=== PATIENT | male | born 1940 | race Caucasian/White ===

== ENCOUNTER → 2016-07-08 | Outpatient (CLI) | payer MEDICARE ==
[~2016-07-08] MED LIST: ASPIR LOW81 MG PO; ATORVASTATIN CA20 M1 PO; BENTYL10 MG PO; CO Q-1010 M2 PO; LISINOPRIL AND1 TA2 PO; LISINOPRIL AND1 TAB PO; LISINOPRIL/HCTZ1 TA3 PO; LIVALO1 MG PO; NIACIN 37 MG-501 TAB PO; PEPCID20 MG PO
--- NOTE | ~2016-07-08 | PROC NOTE ---
[place], [place] PROCEDURE NOTE NAME: JESUS WADSWORTH [facility] #: [id number] UNIT #: [id number] ROOM: DOCTOR: Cuca Miller BIRTHDATE: [birth year] DOS: 07/08/2016 MODIFIED BARIUM SWALLOW STUDY RADIOLOGIST: Dr. Jarquin. PHYSICIAN: Dr. Mitchell. BACKGROUND MEDICAL HISTORY: The patient is a 76-year-old male who was referred for a modified barium swallow study [facility] in order to assess his ability to tolerate thin liquids. The patient had a CVA and is currently receiving a diet of mechanical soft with nectar thick liquids and is receiving speech therapy at the [facility] as well. The patient's cognitive responsiveness level was within functional limits as he was able to have a conversation, respond to verbal commands and give medical history information on his own. Respiratory status was normal. The patient is currently not on oxygen. The patient stated that he had a previous video fluoroscopy study at [facility] after his CVA. METHODS AND MATERIALS: The patient was given thin liquid by cup and by straw, pureed consistency and a soft consistency, all covered with Liquid Barosperse for viewing under fluoroscopy. The patient was seated in a wheelchair and viewed in the lateral plane. Oral assessment revealed left hemiparesis as the patient protruded his tongue and it veered to the right side. The patient demonstrated adequate lingual and labial strength, range of motion, and coordination with movement and noted weakness to the left side when asked to smile. ORAL PHASE: This phase of the swallow was essentially unremarkable. The patient was able to achieve an adequate labial seal, and no anterior loss was noted. Mastication was within functional limits with solids, and oral transit times were within functional limits. Bolus formation was adequate, and tongue to palate contact was adequate as well. Tongue to posterior pharyngeal wall contact was adequate, and ____ function was adequate as no nasal regurgitation occurred. PHARYNGEAL PHASE: The patient demonstrated premature loss of bolus with the spoonful of pears, which were solid and Liquid Barosperse was present on the spoon, which was a thin liquid. The patient demonstrated premature loss with the thin liquid while chewing the bolus; however, he was able to clear this with a single swallow. Minimal residue was noted after the swallow, which the patient was able to clear when given a drink of thin liquids. Minimal pyriform stasis was noted after each bite of solid; however, the patient was able to clear this with a drink of thin liquids. No penetration or aspiration occurred with thin liquids by cup or by straw, and no penetration or aspiration occurred of any residue that remained in the pharynx after the swallow. The patient was able to clear residue additionally by eliciting a second swallow. Epiglottic function was normal, and cricopharyngeal function was normal. [place], [place] PROCEDURE NOTE NAME: JESUS WADSWORTH UNIT #: [id number] ROOM: DOCTOR: Cuca Miller BIRTHDATE: [birth year] ESOPHAGEAL PHASE: This phase of the swallow was not formally assessed under fluoroscopy at this time, however, no regurgitation of material was noted. RESULTS AND RECOMMENDATIONS: The patient demonstrated mild deficits with the pharyngeal phase and no deficits with the oral phase at this time. It is recommended that the patient continue with speech therapy services to continue improving his laryngeal strength, and it is recommended that the patient receive a diet of thin liquids with soft consistency foods due to the residue noted after a swallow of solids. Results and recommendations were reviewed with the patient and his family, and written recommendations were sent home for the staff at the facility. If you have any questions or comments regarding this assessment, please contact the speech pathology department at [phone]. Thank you for this referral. Cuca Miller CM:PROCNOTE:PROCEDURE NOTE [id number] Cuca Miller
== END | disposition home or self-care (01) ==
LOC: RAD/SH 03:04
DX: R13.10 Dysphagia, unspecified (principal); I63.9 Cerebral infarction, unspecified

== ENCOUNTER 2016-10-01 07:44 | Inpatient (IN) | payer MEDICARE ==
[~2016-10-01] VITALS: Ht 175.2 cm; Wt 72.6 kg
[~2016-10-01 07:44] MED LIST changes: +CLARITIN10 MG PO; +ELIQUIS5 M1 PO; +GABAPENTIN100 M2 PO; +LOPRESSOR25 MG PO; +MILK OF MA400 MG/51 PO; +OXYCODONE AND A1 TA6 PO; +TYLENOL325 M1 PO; +VITAMIN B1250 MCG PO; +VITAMIN D400 UNIT PO
[2016-10-01 07:56] VITALS: BP 138/82
[2016-10-01 08:13] LABS: BASO % 0.6 % (0.0-1.0); EOS # 0.3 10*3/uL (0.0-0.4); EOS % 4.9 % (1.0-4.0); HEMATOCRIT 41.8 % (42.0-52.0); HEMOGLOBIN 14.1 g/dl (14.0-18.0); LYMPH # 1.5 10*3/uL (1.3-4.4); LYMPH % 23.3 % (27.0-41.0); MEAN CELL VOLUME 95.2 fl (80.0-94.0); MEAN CORPUSCULAR HGB 32.1 pg (27.0-31.0); MEAN CORPUSCULAR HGB CONC 33.7 g/dl (33.0-37.0); MEAN PLATELET VOLUME 9.8 fl (9.6-12.3); MONO # 0.5 10*3/uL (0.1-1.0); MONO % 8.2 % (3.0-9.0); NEUT # 4.1 10*3/uL (2.3-7.9); NEUT % 62.7 % (47.0-73.0); PLATELET COUNT AUTOMATED 176 10*3/uL (130-400); RED BLOOD COUNT 4.39 10*6/uL (4.50-5.90); RED CELL DISTRI WIDTH 12.6 % (0-14.5); WHITE BLOOD COUNT 6.5 10*3/uL (4.8-10.8)
[2016-10-01 08:22] LABS: INTERNATIONAL NORM RATIO 1.1 (2.0-3.5); PROTHROMBIN TIME 11.4 SECONDS (9.0-12.4)
[2016-10-01 08:29] LABS: ALBUMIN 3.8 gm/dl (3.1-4.5); ALKALINE PHOSPHATASE 62 U/L (45-117); BILIRUBIN, TOTAL 0.7 mg/dl (0.2-1.0); BUN 13 mg/dl (7-24); CARBON DIOXIDE 29 mmol/L (21-32); CHLORIDE 109 mmol/L (98-107); CPK 31 U/L (39-308); EST GLOM FILT AFRICAN AMERICAN > 60 ml/min; GLUCOSE 113 mg/dL (65-99); MAGNESIUM 1.9 mg/dL (1.5-2.1); PHOSPHOROUS 3.1 mg/dL (2.5-4.9); POTASSIUM 3.9 mmol/L (3.5-5.1); SGOT/AST 10 IU/L (3-35); SGPT/ALT 23 U/L (12-78); SODIUM 145 mmol/L (136-145); TOTAL PROTEIN 7.2 gm/dL (6.4-8.2)
[2016-10-01 08:30] LABS: C-REACTIVE PROTEIN < 0.29 MG/DL (0-0.3); CKMB < 0.5 ng/ml (0.5-3.6); TROPONIN I < 0.015 ng/ml (<0.045)
[2016-10-01 08:50] LABS: FOLIC ACID 21.7 ng/mL (>5.38)
[2016-10-01] MEDS ORDERED: LIPITOR40 MG PO (14:05)
[2016-10-01] MEDS ORDERED: ZADITOR 5 ML5 M1 OPH (14:06)
[2016-10-01] MEDS ORDERED: NEURONTIN100 MG PO ×2 (14:10→17:38)
[2016-10-01 14:59] VITALS: BP 145/87
[2016-10-01 16:00] VITALS: BP 129/68
[2016-10-01 20:00] VITALS: BP 155/73
[2016-10-02] VITALS: BP 134/62
[2016-10-02 05:59] LABS: ALBUMIN 3.1 gm/dl (3.1-4.5); ALKALINE PHOSPHATASE 58 U/L (45-117); BILIRUBIN, TOTAL 0.4 mg/dl (0.2-1.0); BUN 13 mg/dl (7-24); CARBON DIOXIDE 25 mmol/L (21-32); CHLORIDE 114 mmol/L (98-107); CHOLESTEROL 118 mg/dL (<200); EST GLOM FILT AFRICAN AMERICAN > 60 ml/min; GLUCOSE 120 mg/dL (65-99); HDL CHOLESTEROL 45 mg/dl (40-60); LDL CHOLESTEROL 45 mg/dL (9-159); MAGNESIUM 1.6 mg/dL (1.5-2.1); PHOSPHOROUS 3.2 mg/dL (2.5-4.9); POTASSIUM 3.6 mmol/L (3.5-5.1); SGOT/AST 13 IU/L (3-35); SGPT/ALT 20 U/L (12-78); SODIUM 148 mmol/L (136-145); TRIGLYCERIDES 140 mg/dl (<150); VLDL CHOLESTEROL 28 mg/dL (6-40)
[2016-10-02 06:19] LABS: BASO # 0.1 10*3/uL (0.0-0.1); BASO % 0.7 % (0.0-1.0); EOS # 0.4 10*3/uL (0.0-0.4); EOS % 5.1 % (1.0-4.0); HEMATOCRIT 35.8 % (42.0-52.0); HEMOGLOBIN 12.5 g/dl (14.0-18.0); LYMPH # 1.8 10*3/uL (1.3-4.4); LYMPH % 24.5 % (27.0-41.0); MEAN CELL VOLUME 93.7 fl (80.0-94.0); MEAN CORPUSCULAR HGB 32.7 pg (27.0-31.0); MEAN CORPUSCULAR HGB CONC 34.9 g/dl (33.0-37.0); MEAN PLATELET VOLUME 10.4 fl (9.6-12.3); MONO # 0.6 10*3/uL (0.1-1.0); MONO % 8.4 % (3.0-9.0); NEUT # 4.4 10*3/uL (2.3-7.9); PLATELET COUNT AUTOMATED 183 10*3/uL (130-400); RED BLOOD COUNT 3.82 10*6/uL (4.50-5.90); RED CELL DISTRI WIDTH 12.5 % (0-14.5); WHITE BLOOD COUNT 7.3 10*3/uL (4.8-10.8)
[2016-10-02 06:23] LABS: HEMOGLOBIN A1c 6.4 % (4.8-5.6)
[2016-10-02 07:33] LABS: VITAMIN D, 25-HYDROXY 25.7 ng/mL (30-100)
[2016-10-02 07:34] LABS: FOLIC ACID 14.31 ng/mL (>5.38)
[2016-10-02 08:00] VITALS: BP 132/74
[2016-10-02 12:00] VITALS: BP 145/73
[2016-10-02 16:00] VITALS: BP 149/75
[2016-10-02 20:00] VITALS: BP 152/66
[2016-10-03] VITALS: BP 119/54
[2016-10-03 08:00] VITALS: BP 149/75
[2016-10-03 10:25] LABS: BILIRUBIN NEGATIVE (NEGATIVE); BLOOD NEGATIVE (NEGATIVE); CLARITY CLEAR (CLEAR); COLOR YELLOW (YELLOW); GLUCOSE NEGATIVE (NEGATIVE); KETONE NEGATIVE (NEGATIVE); LEUKO ESTERASE NEGATIVE (NEGATIVE); NITRITE NEGATIVE (NEGATIVE); PROTEIN NEGATIVE (NEGATIVE); UROBILINOGEN 0.2 E.U./dl (0.2-1.0)
[2016-10-03 10:33] LABS: BACTERIA TRACE; MUCOUS TRACE; URINE REFLEX COMMENT NO (NO)
[2016-10-03 12:00] VITALS: BP 136/76
[2016-10-03 16:00] VITALS: BP 143/71
[2016-10-03 20:00] VITALS: BP 148/66
[2016-10-04] VITALS: BP 154/73
[2016-10-04 08:00] VITALS: BP 168/83
[2016-10-04 08:24] LABS: BUN 10 mg/dl (7-24); CARBON DIOXIDE 25 mmol/L (21-32); CHLORIDE 111 mmol/L (98-107); EST GLOM FILT AFRICAN AMERICAN > 60 ml/min; GLUCOSE 121 mg/dL (65-99); POTASSIUM 3.9 mmol/L (3.5-5.1); SODIUM 145 mmol/L (136-145)
== END 2016-10-04 10:50 | disposition other institution (70) | DRG 948 ==
LOC: ED 07:44 → EDHOLD 13:42 → 5E 13:42
PROVIDERS: Emergency Medicine; Hospitalist
DX: R53.1 Weakness (principal); I10 Essential (primary) hypertension; R26.81 Unsteadiness on feet; E78.2 Mixed hyperlipidemia; T42.6X5A Adverse effect of other antiepileptic and sedative-hypnotic drugs, initial encounter; E78.5 Hyperlipidemia, unspecified; Z95.5 Presence of coronary angioplasty implant and graft; Z87.891 Personal history of nicotine dependence; Z85.46 Personal history of malignant neoplasm of prostate; Z82.0 Family history of epilepsy and other diseases of the nervous system; Z86.73 Personal history of transient ischemic attack (TIA), and cerebral infarction without residual deficits; Z82.3 Family history of stroke; Z79.899 Other long term (current) drug therapy; Z79.1 Long term (current) use of non-steroidal anti-inflammatories (NSAID); Y92.89 Other specified places as the place of occurrence of the external cause; Z98.42 Cataract extraction status, left eye; Z98.41 Cataract extraction status, right eye

== ENCOUNTER → 2016-10-04 | Outpatient (CLI) | payer MEDICARE ==
[~2016-10-04] MED LIST changes: +LIPITOR40 MG PO; +NEURONTIN100 MG PO; +ZADITOR 5 ML5 M1 OPH
== END | disposition home or self-care (01) ==
LOC: CP 11:00
DX: I69.398 Other sequelae of cerebral infarction (principal); R41.4 Neurologic neglect syndrome; R20.9 Unspecified disturbances of skin sensation; R41.89 Other symptoms and signs involving cognitive functions and awareness

== ENCOUNTER 2016-10-19 08:28 | Inpatient (IN) | payer MEDICARE ==
[~2016-10-19] VITALS: Ht 185.4 cm; Wt 74.2 kg
[2016-10-19] VITALS (9 sets, daily range): BP systolic 113–175; BP diastolic 67–92
[2016-10-19 09:19] LABS: BASO # 0.1 10*3/uL (0.0-0.1); BASO % 0.7 % (0.0-1.0); EOS # 0.2 10*3/uL (0.0-0.4); EOS % 3.4 % (1.0-4.0); HEMOGLOBIN 13.3 g/dl (14.0-18.0); LYMPH # 1.5 10*3/uL (1.3-4.4); LYMPH % 22.5 % (27.0-41.0); MEAN CORPUSCULAR HGB CONC 34.1 g/dl (33.0-37.0); MEAN PLATELET VOLUME 9.8 fl (9.6-12.3); MONO # 0.4 10*3/uL (0.1-1.0); MONO % 6.3 % (3.0-9.0); NEUT # 4.5 10*3/uL (2.3-7.9); NEUT % 66.8 % (47.0-73.0); PLATELET COUNT AUTOMATED 196 10*3/uL (130-400); RED BLOOD COUNT 4.15 10*6/uL (4.50-5.90); RED CELL DISTRI WIDTH 12.4 % (0-14.5); WHITE BLOOD COUNT 6.7 10*3/uL (4.8-10.8)
[2016-10-19 09:29] LABS: INTERNATIONAL NORM RATIO 1.1 (2.0-3.5); PROTHROMBIN TIME 11.4 SECONDS (9.0-12.4)
[2016-10-19 09:36] LABS: ALBUMIN 3.6 gm/dl (3.1-4.5); ALKALINE PHOSPHATASE 62 U/L (45-117); BILIRUBIN, TOTAL 0.5 mg/dl (0.2-1.0); BUN 16 mg/dl (7-24); CARBON DIOXIDE 22 mmol/L (21-32); CHLORIDE 109 mmol/L (98-107); CPK 48 U/L (39-308); EST GLOM FILT AFRICAN AMERICAN > 60 ml/min; GLUCOSE 148 mg/dL (65-99); MAGNESIUM 1.8 mg/dL (1.5-2.1); POTASSIUM 3.5 mmol/L (3.5-5.1); SGOT/AST 11 IU/L (3-35); SGPT/ALT 24 U/L (12-78); SODIUM 141 mmol/L (136-145)
[2016-10-19 09:54] LABS: C-REACTIVE PROTEIN < 0.29 MG/DL (0-0.3); CKMB < 0.5 ng/ml (0.5-3.6); TROPONIN I < 0.015 ng/ml (<0.045)
[2016-10-19 11:11] LABS: BILIRUBIN NEGATIVE (NEGATIVE); BLOOD NEGATIVE (NEGATIVE); CLARITY SL CLOUDY (CLEAR); COLOR YELLOW (YELLOW); GLUCOSE NEGATIVE (NEGATIVE); KETONE NEGATIVE (NEGATIVE); LEUKO ESTERASE NEGATIVE (NEGATIVE); NITRITE NEGATIVE (NEGATIVE); PROTEIN NEGATIVE (NEGATIVE); SPECIFIC GRAVITY 1.025 (1.005-1.030); UROBILINOGEN 0.2 E.U./dl (0.2-1.0)
[2016-10-19 11:16] LABS: LA>2 REFLEX 2 HR DRAW NOW
[2016-10-19 11:22] LABS: MUCOUS TRACE; URINE REFLEX COMMENT NO (NO)
[2016-10-19] MEDS ORDERED: PEPCID20 MG PO (13:49)
[2016-10-19] MEDS ORDERED: VITAMIN D32000 IU PO (13:52)
[2016-10-20] VITALS: BP 100/50
[2016-10-20 06:13] LABS: BASO # 0.1 10*3/uL (0.0-0.1); BASO % 0.7 % (0.0-1.0); EOS # 0.2 10*3/uL (0.0-0.4); EOS % 3.3 % (1.0-4.0); HEMATOCRIT 35.8 % (42.0-52.0); HEMOGLOBIN 12.3 g/dl (14.0-18.0); LYMPH # 2.3 10*3/uL (1.3-4.4); LYMPH % 31.8 % (27.0-41.0); MEAN CELL VOLUME 93.2 fl (80.0-94.0); MEAN CORPUSCULAR HGB CONC 34.4 g/dl (33.0-37.0); MEAN PLATELET VOLUME 9.9 fl (9.6-12.3); MONO # 0.6 10*3/uL (0.1-1.0); NEUT # 4.1 10*3/uL (2.3-7.9); NEUT % 55.9 % (47.0-73.0); PLATELET COUNT AUTOMATED 203 10*3/uL (130-400); RED BLOOD COUNT 3.84 10*6/uL (4.50-5.90); RED CELL DISTRI WIDTH 12.6 % (0-14.5); WHITE BLOOD COUNT 7.2 10*3/uL (4.8-10.8)
[2016-10-20 06:46] LABS: ALBUMIN 3.1 gm/dl (3.1-4.5); BUN 15 mg/dl (7-24); CARBON DIOXIDE 24 mmol/L (21-32); CHLORIDE 110 mmol/L (98-107); EST GLOM FILT AFRICAN AMERICAN > 60 ml/min; GLUCOSE 106 mg/dL (65-99); MAGNESIUM 2.1 mg/dL (1.5-2.1); POTASSIUM 3.6 mmol/L (3.5-5.1); SGOT/AST 12 IU/L (3-35); SGPT/ALT 21 U/L (12-78); SODIUM 143 mmol/L (136-145)
[2016-10-20 06:56] LABS: ALKALINE PHOSPHATASE 59 U/L (45-117); BILIRUBIN, TOTAL 0.6 mg/dl (0.2-1.0); TOTAL PROTEIN 6.4 gm/dL (6.4-8.2)
[2016-10-20 07:09] LABS: FOLIC ACID 15.97 ng/mL (>5.38)
[2016-10-20 08:00] VITALS: BP 125/75
== END 2016-10-20 11:01 | DRG 100 ==
LOC: ED 08:28 → EDHOLD 11:35 → 4E 11:39
PROVIDERS: Emergency Medicine; Hospitalist
DX: R56.9 Unspecified convulsions (principal); G93.40 Encephalopathy, unspecified; I69.354 Hemiplegia and hemiparesis following cerebral infarction affecting left non-dominant side; D64.9 Anemia, unspecified; I10 Essential (primary) hypertension; E78.5 Hyperlipidemia, unspecified; Z85.46 Personal history of malignant neoplasm of prostate; Z88.8 Allergy status to other drugs, medicaments and biological substances; Z87.891 Personal history of nicotine dependence; Z82.3 Family history of stroke; R53.1 Weakness; R53.81 Other malaise; E78.4 Other hyperlipidemia

== ENCOUNTER → 2016-11-18 | Outpatient (CLI) | payer MEDICARE ==
[~2016-11-18] MED LIST changes: +VITAMIN D32000 IU PO
== END | disposition home or self-care (01) ==
LOC: US 12:17
DX: I65.23 Occlusion and stenosis of bilateral carotid arteries (principal); I25.10 Atherosclerotic heart disease of native coronary artery without angina pectoris; I63.231 Cerebral infarction due to unspecified occlusion or stenosis of right carotid arteries; I82.A22 Chronic embolism and thrombosis of left axillary vein; Z95.5 Presence of coronary angioplasty implant and graft

== ENCOUNTER → 2016-11-22 | Outpatient (CLI) | payer MEDICARE | END | disposition home or self-care (01) | LOC: LAB 11:38 | DX: D64.9 Anemia, unspecified (principal); R53.83 Other fatigue ==

== ENCOUNTER 2016-12-23 10:10 | Emergency (ER) | payer MEDICARE ==
[~2016-12-23] VITALS: Ht 175.2 cm; Wt 70.3 kg
[2016-12-23 11:02] LABS: BASO # 0.1 10*3/uL (0.0-0.1); BASO % 0.7 % (0.0-1.0); EOS # 0.2 10*3/uL (0.0-0.4); EOS % 2.6 % (1.0-4.0); HEMATOCRIT 43.3 % (42.0-52.0); HEMOGLOBIN 14.6 g/dl (14.0-18.0); LYMPH # 1.7 10*3/uL (1.3-4.4); LYMPH % 19.7 % (27.0-41.0); MEAN CORPUSCULAR HGB 32.4 pg (27.0-31.0); MEAN CORPUSCULAR HGB CONC 33.7 g/dl (33.0-37.0); MEAN PLATELET VOLUME 9.7 fl (9.6-12.3); MONO # 0.6 10*3/uL (0.1-1.0); MONO % 6.4 % (3.0-9.0); NEUT % 69.9 % (47.0-73.0); PLATELET COUNT AUTOMATED 218 10*3/uL (130-400); RED BLOOD COUNT 4.51 10*6/uL (4.50-5.90); RED CELL DISTRI WIDTH 12.7 % (0-14.5); WHITE BLOOD COUNT 8.6 10*3/uL (4.8-10.8)
[2016-12-23 11:10] LABS: ACT PARTIAL THROMBO TIME 23.1 SECONDS (20.8-31.5)
[2016-12-23 11:24] LABS: ALBUMIN 3.7 gm/dl (3.1-4.5); ALKALINE PHOSPHATASE 74 U/L (45-117); BUN 23 mg/dl (7-24); CHLORIDE 111 mmol/L (98-107); CPK 32 U/L (39-308); CREATININE 1.09 mg/dL (0.70-1.30); LIPASE 194 U/L (73-393); MAGNESIUM 2.1 mg/dL (1.5-2.1); SGOT/AST 12 IU/L (3-35); SGPT/ALT 35 U/L (12-78); SODIUM 143 mmol/L (136-145); TOTAL PROTEIN 7.4 gm/dL (6.4-8.2)
[2016-12-23 11:26] LABS: CKMB < 0.5 ng/ml (0.5-3.6); TROPONIN I < 0.015 ng/ml (<0.045)
[2016-12-23 12:03] LABS: BILIRUBIN NEGATIVE (NEGATIVE); BLOOD NEGATIVE (NEGATIVE); CLARITY CLEAR (CLEAR); COLOR YELLOW (YELLOW); GLUCOSE NEGATIVE (NEGATIVE); KETONE NEGATIVE (NEGATIVE); LEUKO ESTERASE NEGATIVE (NEGATIVE); NITRITE NEGATIVE (NEGATIVE); PH 5.5 (5.0-9.0); SPECIFIC GRAVITY >= 1.030 (1.005-1.030); UROBILINOGEN 0.2 E.U./dl (0.2-1.0)
== END 2016-12-23 14:20 | disposition home or self-care (01) ==
LOC: ED 10:10
PROVIDERS: Emergency Medicine
DX: E86.0 Dehydration (principal); R53.1 Weakness; I10 Essential (primary) hypertension; E78.5 Hyperlipidemia, unspecified; Z86.73 Personal history of transient ischemic attack (TIA), and cerebral infarction without residual deficits; Z88.8 Allergy status to other drugs, medicaments and biological substances; Z79.899 Other long term (current) drug therapy; Z87.891 Personal history of nicotine dependence

== ENCOUNTER → 2017-05-08 | Outpatient (CLI) | payer MEDICARE ==
[2017-05-08 12:13] LABS: BUN 18 mg/dl (7-24); CHLORIDE 110 mmol/L (98-107); CHOLESTEROL 123 mg/dL (<200); CPK 42 U/L (39-308); CREATININE 1.17 mg/dL (0.70-1.30); HDL CHOLESTEROL 47 mg/dl (40-60); LDL CHOLESTEROL 44 mg/dL (9-159); POTASSIUM 3.6 mmol/L (3.5-5.1); SODIUM 146 mmol/L (136-145); TRIGLYCERIDES 162 mg/dl (<150); VLDL CHOLESTEROL 32 mg/dL (6-40)
== END | disposition home or self-care (01) ==
LOC: LAB 10:55
PROVIDERS: Family Medicine
DX: I10 Essential (primary) hypertension (principal); E78.00 Pure hypercholesterolemia, unspecified

== ENCOUNTER → 2017-10-30 | Outpatient (CLI) | payer MEDICARE ==
[2017-10-30 10:48] LABS: BUN 14 mg/dl (7-24); CHLORIDE 109 mmol/L (98-107); CHOLESTEROL 107 mg/dL (<200); CREATININE 1.37 mg/dL (0.70-1.30); HDL CHOLESTEROL 42 mg/dl (40-60); LDL CHOLESTEROL 42 mg/dL (9-159); POTASSIUM 3.9 mmol/L (3.5-5.1); SODIUM 143 mmol/L (136-145); TRIGLYCERIDES 113 mg/dl (<150); VLDL CHOLESTEROL 23 mg/dL (6-40)
== END | disposition home or self-care (01) ==
LOC: LAB 09:55
PROVIDERS: Family Medicine
DX: E78.00 Pure hypercholesterolemia, unspecified (principal); I10 Essential (primary) hypertension; F39 Unspecified mood [affective] disorder; Z79.899 Other long term (current) drug therapy

== ENCOUNTER 2018-03-22 13:36 | Inpatient (IN) | payer MEDICARE ==
[~2018-03-22] VITALS: Ht 175.2 cm; Wt 72.5 kg
--- NOTE | ~2018-03-22 | EKG ---
[place], [place] ELECTROCARDIOGRAM REPORT NAME: JESUS WADSWORTH UNIT #: [id number] ROOM: 406 DOCTOR: IVAN DRAFT REPORT BIRTHDATE: [birth year] [facility] Test Date: 2018-03-22 Test Time: 16:18:35 Pat Name: JESUS WADSWORTH Department: Room: 406 Gender: M Swatcher: : 1940 Requested By: DASHAWN BAUGH Order Number: [id number] Reading MD: Ted Marina MD Measurements Intervals [place] Rate: 66 P: 16 MO: 169 QRS: 15 QRSD: 89 T: -6 QT: 372 QTc: 390 Interpretive Statements Sinus rhythm Probable inferior infarct, age indeterminate No change from earlier ECG this date. Electronically Signed On 03-23-2018 16:43:23 PST by Ted Marina MD CM:EKGRPT:ELECTROCARDIOGRAM REPORT [id number] 1643 DASHAWN LOVE DRAFT REPORT DASHAWN BAUGH MD
--- NOTE | ~2018-03-22 | EKG ---
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 Electronically Signed On 03-23-2018 16:45:17 PST by Ted Marina MD CM:EKGRPT:ELECTROCARDIOGRAM REPORT [id number] 1645 DASHAWN LOVE DRAFT REPORT DASHAWN BAUGH MD
--- NOTE | ~2018-03-22 | CON ---
[place], [place] REPORT OF CONSULTATION NAME: JESUS WADSWORTH [facility] #: [id number] UNIT #: [id number] ROOM: 406 DOCTOR: LISETH STILL MD BIRTHDATE: [birth year] DOS: 03/23/2018 CARDIOLOGY CONSULTATION REASON FOR CONSULTATION: Chest pain. HISTORY OF PRESENT ILLNESS: The patient is a 77-year-old man who does have a history of coronary artery disease. He initially presented after an episode of nausea, diaphoresis and severe weakness in 2012. He actually experienced this in the middle of the night and told family members about it the next day. They encouraged him to go to the Emergency Room, but he waited at home for 2 or 3 days before he finally did come in because he still felt weak. He states that he was evaluated at that time by Dr. 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 He was transferred to the in [place], where he underwent catheterization with placement of 2 stents per his report. The details of that are not currently available. He subsequently did suffer a stroke about 2 years ago. A carotid ultrasound showed total occlusion of the right internal carotid artery with less than 50% stenosis on the left. He had a right hemispheric stroke with left hemiparesis. He still does have some weakness on that side. There was some question whether he might have atrial fibrillation and an implantable loop recorder was placed. He states that no significant arrhythmias have ever been documented, however. The patient has continued to feel well aside from his focal weakness. He had not had any further episodes of diaphoresis until last evening. He awakened at about 3:00 a.m. with diaphoresis, slight nausea and weakness. He became concerned since this was similar to what he had in the past. He, therefore, came to the Emergency Room. In the Emergency Room, his electrocardiogram showed sinus rhythm and was a normal tracing. He had no acute EKG changes and no elevation in troponin. We were asked to assist in his evaluation. Currently, he feels well. PAST MEDICAL HISTORY: Includes: 1. History of acute egp-FM-ckyrtnuln myocardial infarction in 2012. The patient transferred to the in [place], where he claims he underwent catheterization and received 2 stents. 2. Essential hypertension. 3. Hyperlipidemia. 4. 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 5. 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 6. History of prostate cancer. 7. Essential hypertension. 8. Status post prostate surgery. 9. History of bilateral cataract resections. MEDICATIONS: Prior to admission: Acetaminophen p.r.n., apixaban 5 mg b.i.d., aspirin 81 mg 3 times a week, atorvastatin 80 mg at bedtime, famotidine 20 mg daily, loratadine 10 mg daily p.r.n., metformin 500 mg daily, metoprolol tartrate 25 mg b.i.d. and topiramate 25 mg daily. [place], [place] REPORT OF CONSULTATION NAME: JESUS WADSWORTH UNIT #: [id number] ROOM: [facility] DOCTOR: LISETH STILL MD BIRTHDATE: [birth year] ALLERGIES: The patient lists allergies to NIACIN and GABAPENTIN. REVIEW OF SYSTEMS: The patient denies diplopia or loss of vision. He denies lightheadedness or syncope. He does have chronic left-sided weakness since his stroke in 2016. He denies fevers, chills, sweats or recent weight change. He denies nausea or vomiting. He denies any hematemesis. He denies cough or hemoptysis. He denies dyspnea with normal activities. He denies any change in bowel or bladder habits and denies blood in his stools or urine. He denies any skin rashes. He denies peripheral edema. He does not get claudications. He denies any hot or swollen joints. He denies polyuria or polydipsia. The remainder of the review of systems is negative except as noted above. FAMILY HISTORY: Negative for early coronary disease. His mother at age 80 from complications of Alzheimer's disease and his father of a stroke at age 84. 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 He does not consume alcohol or use illicit drugs. He was a smoker, but quit many years ago. PHYSICAL EXAMINATION: GENERAL: The patient is well-nourished white male who is awake, alert and oriented. VITAL SIGNS: Pulse is 66 and regular, blood pressure is 125/65. He is afebrile. He weighs 72.5 kg and has a body mass index of 23.6. HEENT: Normocephalic and atraumatic. Extraocular muscles are intact. Sclerae are clear. Pupils equal, round and react to light. The oral mucosa is moist. Tongue is midline. NECK: Supple. He has no jugular distention. Carotids are full and I heard no bruits. He had no neck or supraclavicular masses and no thyromegaly. LUNGS: Respirations are unlabored. His chest is clear to auscultation and percussion. He has no presacral edema or chest wall tenderness. HEART: Has a regular rhythm. He has a fourth heart sound, but no third heart sound or murmur. The PMI is not displaced. He has no precordial heave, lift or thrill. ABDOMEN: Soft and normally active without masses, organomegaly or bruits. EXTREMITIES: Showed no clubbing, cyanosis or edema. Peripheral pulses are palpable in the feet. I reviewed his electrocardiogram, which was in sinus rhythm and was a normal tracing. Chest x-ray showed normal cardiac size without any evidence for heart failure or infiltrates. LABORATORY DATA: Hemoglobin is 12.8, white count 7700, platelet count 166,000. Sodium 141, potassium 3.6, BUN 14, creatinine 0.91. Hemoglobin A1c 6.4. Serial troponin levels have been negative. TSH is 2.89. IMPRESSION: 1. Atypical chest discomfort. The patient states that his symptoms are very similar to what he experienced when he had a myocardial infarction in 2012. [place], [place] REPORT OF CONSULTATION NAME: JESUS WADSWORTH UNIT #: [id number] ROOM: [facility] DOCTOR: LISETH STILL MD BIRTHDATE: [birth year] Thus far; however, he shows no signs of acute coronary syndrome. 2. History of stroke. 3. Carotid vascular disease with totally occluded right internal carotid artery noted. 4. Loop recorder in place in the patient's left chest. 5. Essential hypertension. 6. Type 2 diabetes mellitus. 7. Hyperlipidemia. 8. History of stroke with left-sided weakness. PLAN: We will proceed with a pharmacologic stress test. An echocardiogram has also been requested. Further recommendations will depend upon the results of testing. We thank the hospitalist physicians for asking our advice regarding his assessment and care. LISETH STILL MD CM:CONSTR:REPORT OF CONSULTATION 1247 03/24/18 1701 interface
--- NOTE | ~2018-03-22 | EKG ---
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
[~2018-03-22 13:36] MED LIST changes: -LIPITOR40 MG PO; +LIPITOR80 MG PO
[2018-03-22 13:37] VITALS: BP 133/71
[2018-03-22 14:06] LABS: BASO # 0.1 10*3/uL (0.0-0.1); BASO % 0.7 % (0.0-1.0); EOS # 0.3 10*3/uL (0.0-0.4); EOS % 4.2 % (1.0-4.0); HEMOGLOBIN 13.6 g/dl (14.0-18.0); LYMPH % 25.2 % (27.0-41.0); MEAN CELL VOLUME 98.3 fl (80.0-94.0); MEAN CORPUSCULAR HGB 33.4 pg (27.0-31.0); MEAN PLATELET VOLUME 9.8 fl (9.6-12.3); MONO # 0.6 10*3/uL (0.1-1.0); MONO % 7.7 % (3.0-9.0); NEUT % 61.8 % (47.0-73.0); PLATELET COUNT AUTOMATED 192 10*3/uL (130-400); RED BLOOD COUNT 4.07 10*6/uL (4.50-5.90); RED CELL DISTRI WIDTH 12.4 % (0-14.5); WHITE BLOOD COUNT 8.1 10*3/uL (4.8-10.8)
[2018-03-22 14:14] LABS: ACT PARTIAL THROMBO TIME 22.5 SECONDS (20.8-31.5)
[2018-03-22 14:22] LABS: ALBUMIN 3.4 gm/dl (3.1-4.5); ALKALINE PHOSPHATASE 65 U/L (45-117); BUN 17 mg/dl (7-24); CHLORIDE 111 mmol/L (98-107); POTASSIUM 3.9 mmol/L (3.5-5.1); SGOT/AST 22 IU/L (3-35); SGPT/ALT 51 U/L (12-78); SODIUM 142 mmol/L (136-145); TOTAL PROTEIN 6.7 gm/dL (6.4-8.2)
[2018-03-22 14:23] LABS: TROPONIN I < 0.015 ng/ml (<0.045)
[2018-03-22 14:55] VITALS: BP 133/76
[2018-03-22 16:10] VITALS: BP 153/79
[2018-03-22] MEDS ORDERED: METFORMIN HYDR500 MG PO (16:47)
[2018-03-22] MEDS ORDERED: TOPIRAMATE25 M3 PO (16:47)
[2018-03-22] MEDS ORDERED: ASPIR 8181 MG PO (16:48)
[2018-03-22 20:00] VITALS: BP 130/68; BP 158/83
[2018-03-23] VITALS: BP 128/68
[2018-03-23 06:10] LABS: ALBUMIN 3.1 gm/dl (3.1-4.5); ALKALINE PHOSPHATASE 57 U/L (45-117); BUN 14 mg/dl (7-24); CHLORIDE 112 mmol/L (98-107); CHOLESTEROL 99 mg/dL (<200); CREATININE 0.91 mg/dL (0.70-1.30); HDL CHOLESTEROL 41 mg/dl (40-60); LDL CHOLESTEROL 35 mg/dL (9-159); PHOSPHOROUS 3.2 mg/dL (2.5-4.9); POTASSIUM 3.6 mmol/L (3.5-5.1); SGOT/AST 22 IU/L (3-35); SGPT/ALT 44 U/L (12-78); SODIUM 141 mmol/L (136-145); TOTAL PROTEIN 6.1 gm/dL (6.4-8.2); TRIGLYCERIDES 113 mg/dl (<150); VLDL CHOLESTEROL 23 mg/dL (6-40)
[2018-03-23 06:18] LABS: BASO # 0.1 10*3/uL (0.0-0.1); BASO % 0.8 % (0.0-1.0); EOS # 0.5 10*3/uL (0.0-0.4); HEMATOCRIT 37.6 % (42.0-52.0); HEMOGLOBIN 12.8 g/dl (14.0-18.0); LYMPH # 2.1 10*3/uL (1.3-4.4); LYMPH % 27.5 % (27.0-41.0); MEAN CELL VOLUME 97.7 fl (80.0-94.0); MEAN CORPUSCULAR HGB 33.2 pg (27.0-31.0); MEAN PLATELET VOLUME 10.4 fl (9.6-12.3); MONO # 0.7 10*3/uL (0.1-1.0); MONO % 8.4 % (3.0-9.0); NEUT # 4.3 10*3/uL (2.3-7.9); NEUT % 55.9 % (47.0-73.0); PLATELET COUNT AUTOMATED 166 10*3/uL (130-400); RED BLOOD COUNT 3.85 10*6/uL (4.50-5.90); RED CELL DISTRI WIDTH 12.2 % (0-14.5); WHITE BLOOD COUNT 7.7 10*3/uL (4.8-10.8)
[2018-03-23 06:28] LABS: ACT PARTIAL THROMBO TIME 24.7 SECONDS (20.8-31.5); INTERNATIONAL NORM RATIO 1.1 (2.0-3.5)
[2018-03-23 07:06] LABS: VITAMIN D, 25-HYDROXY 25.6 ng/mL (30-100)
[2018-03-23 07:50] VITALS: BP 125/65
[2018-03-23 12:00] VITALS: BP 133/70
[2018-03-23 16:00] VITALS: BP 131/69
[2018-03-23] MEDS ORDERED: VITAMIN D-32000 UNI1 PO (16:37)
== END 2018-03-23 17:33 | disposition home or self-care (01) | DRG 392 ==
LOC: ED 13:36 → 4E 14:43 → EDHOLD 14:43 → 4E 15:08
PROVIDERS: Emergency Medicine; Internal Medicine
DX: K21.9 Gastro-esophageal reflux disease without esophagitis (principal); E44.1 Mild protein-calorie malnutrition; I69.354 Hemiplegia and hemiparesis following cerebral infarction affecting left non-dominant side; E87.8 Other disorders of electrolyte and fluid balance, not elsewhere classified; I65.21 Occlusion and stenosis of right carotid artery; I10 Essential (primary) hypertension; E78.5 Hyperlipidemia, unspecified; I25.10 Atherosclerotic heart disease of native coronary artery without angina pectoris; D53.9 Nutritional anemia, unspecified; D72.810 Lymphocytopenia; E11.65 Type 2 diabetes mellitus with hyperglycemia; Z95.5 Presence of coronary angioplasty implant and graft; I25.2 Old myocardial infarction; Z85.46 Personal history of malignant neoplasm of prostate; Z98.42 Cataract extraction status, left eye; Z98.41 Cataract extraction status, right eye; Z88.8 Allergy status to other drugs, medicaments and biological substances; Z82.3 Family history of stroke; Z82.0 Family history of epilepsy and other diseases of the nervous system; Z87.891 Personal history of nicotine dependence; Z79.82 Long term (current) use of aspirin; Z79.84 Long term (current) use of oral hypoglycemic drugs; Z79.899 Other long term (current) drug therapy; Z68.23 Body mass index [BMI] 23.0-23.9, adult

== ENCOUNTER → 2018-12-09 | Outpatient (CLI) | payer MEDICARE ==
[~2018-12-09] MED LIST changes: +ASPIR 8181 MG PO; +METFORMIN HYDR500 MG PO; +TOPIRAMATE25 M3 PO; +VITAMIN D-32000 UNI1 PO
[2018-12-09 13:07] LABS: BASO # 0.1 10*3/uL (0.0-0.1); BASO % 0.9 % (0.0-1.0); EOS # 0.2 10*3/uL (0.0-0.4); EOS % 2.9 % (1.0-4.0); HEMATOCRIT 41.8 % (42.0-52.0); HEMOGLOBIN 14.3 g/dl (14.0-18.0); LYMPH # 2.2 10*3/uL (1.3-4.4); LYMPH % 27.9 % (27.0-41.0); MEAN CELL VOLUME 100.5 fl (80.0-94.0); MEAN CORPUSCULAR HGB 34.4 pg (27.0-31.0); MEAN CORPUSCULAR HGB CONC 34.2 g/dl (33.0-37.0); MEAN PLATELET VOLUME 9.6 fl (9.6-12.3); MONO # 0.6 10*3/uL (0.1-1.0); MONO % 7.7 % (3.0-9.0); NEUT # 4.9 10*3/uL (2.3-7.9); NEUT % 60.4 % (47.0-73.0); PLATELET COUNT AUTOMATED 196 10*3/uL (130-400); RED BLOOD COUNT 4.16 10*6/uL (4.50-5.90); RED CELL DISTRI WIDTH 12.1 % (0-14.5)
[2018-12-09 13:21] LABS: ALBUMIN 3.8 gm/dl (3.1-4.5); ALKALINE PHOSPHATASE 61 U/L (45-117); BUN 18 mg/dl (7-24); CHLORIDE 112 mmol/L (98-107); CHOLESTEROL 113 mg/dL (<200); CREATININE 1.04 mg/dL (0.70-1.30); HDL CHOLESTEROL 45 mg/dl (40-60); LDL CHOLESTEROL 50 mg/dL (9-159); POTASSIUM 3.9 mmol/L (3.5-5.1); SGOT/AST 88 IU/L (3-35); SGPT/ALT 83 U/L (12-78); SODIUM 142 mmol/L (136-145); TOTAL PROTEIN 7.3 gm/dL (6.4-8.2); TRIGLYCERIDES 90 mg/dl (<150); VLDL CHOLESTEROL 18 mg/dL (6-40)
== END | disposition home or self-care (01) ==
LOC: LAB 12:45
PROVIDERS: Family Medicine
DX: E78.2 Mixed hyperlipidemia (principal); R53.83 Other fatigue; C61 Malignant neoplasm of prostate

== ENCOUNTER → 2019-05-19 | Outpatient (CLI) | payer MEDICARE ==
[2019-05-19 12:31] LABS: ALBUMIN 4.1 gm/dl (3.1-4.5); BILIRUBIN, DIRECT 0.1 mg/dL (0.0-0.2); BUN 14 mg/dl (7-24); CHLORIDE 113 mmol/L (98-107); CHOLESTEROL 130 mg/dL (<200); CREATININE 1.14 mg/dL (0.70-1.30); POTASSIUM 4.8 mmol/L (3.5-5.1); SGOT/AST 24 IU/L (3-35); SGPT/ALT 56 U/L (12-78); SODIUM 142 mmol/L (136-145); TRIGLYCERIDES 103 mg/dl (<150); VLDL CHOLESTEROL 21 mg/dL (6-40)
[2019-05-19 12:33] LABS: ALKALINE PHOSPHATASE 55 U/L (45-117); HDL CHOLESTEROL 54 mg/dl (40-60); LDL CHOLESTEROL 55 mg/dL (9-159); TOTAL PROTEIN 7.6 gm/dL (6.4-8.2)
[2019-05-20 08:10] LABS: HEPATITIS B SURFACE AG Negative (Negative); HEPATITIS C VIRUS ANTIBODY <0.1 s/co (0.0-0.9)
== END | disposition home or self-care (01) ==
LOC: LAB 11:34
PROVIDERS: Family Medicine
DX: I10 Essential (primary) hypertension (principal); E78.2 Mixed hyperlipidemia; R73.9 Hyperglycemia, unspecified; R74.8 Abnormal levels of other serum enzymes; R10.9 Unspecified abdominal pain

== ENCOUNTER → 2020-04-24 | Outpatient (CLI) | payer MEDICARE | END | disposition home or self-care (01) | LOC: US 00:32 | PROVIDERS: ATTEND Nurse Practitioner Family | DX: I65.21 Occlusion and stenosis of right carotid artery (principal); I63.9 Cerebral infarction, unspecified ==

== ENCOUNTER → 2020-04-27 | Outpatient (CLI) | payer MEDICARE | END | disposition home or self-care (01) | LOC: COVID19 09:00 | PROVIDERS: ATTEND Nurse Practitioner Family | DX: R43.0 Anosmia (principal); Z20.822 Contact with and (suspected) exposure to COVID-19 ==

== ENCOUNTER → 2022-02-19 | Outpatient (CLI) | payer MEDICARE ==
[2022-02-19 16:25] LABS: BASO # 0.1 10*3/uL (0.0-0.1); BASO % 1.1 % (0.0-1.0); EOS # 0.3 10*3/uL (0.0-0.4); EOS % 3.8 % (1.0-4.0); HEMATOCRIT 45.3 % (42.0-52.0); LYMPH % 26.1 % (27.0-41.0); MEAN CELL VOLUME 107.3 fl (80.0-94.0); MEAN CORPUSCULAR HGB 34.8 pg (27.0-31.0); MEAN CORPUSCULAR HGB CONC 32.5 g/dl (33.0-37.0); MONO # 0.6 10*3/uL (0.1-1.0); MONO % 8.3 % (3.0-9.0); NEUT # 4.6 10*3/uL (2.3-7.9); NEUT % 60.4 % (47.0-73.0); PLATELET COUNT AUTOMATED 183 10*3/uL (130-400); RED BLOOD COUNT 4.22 10*6/uL (4.50-5.90); WHITE BLOOD COUNT 7.6 10*3/uL (4.8-10.8)
[2022-02-19 16:44] LABS: ALKALINE PHOSPHATASE 56 U/L (45-117); BUN 16 mg/dl (7-24); CHLORIDE 111 mmol/L (98-107); CHOLESTEROL 114 mg/dL (<200); CREATININE 1.07 mg/dL (0.70-1.30); LDL CHOLESTEROL 37 mg/dL (9-159); POTASSIUM 3.8 mmol/L (3.5-5.1); SGOT/AST 36 IU/L (3-35); SGPT/ALT 60 U/L (12-78); SODIUM 142 mmol/L (136-145); TOTAL PROTEIN 7.6 gm/dL (6.4-8.2); TRIGLYCERIDES 161 mg/dl (<150)
== END ==
LOC: LAB 15:47
PROVIDERS: ATTEND Nurse Practitioner Family
DX: E78.5 Hyperlipidemia, unspecified (principal); I10 Essential (primary) hypertension; R63.4 Abnormal weight loss; R73.01 Impaired fasting glucose

== ENCOUNTER → 2022-04-11 | Outpatient (CLI) | payer MEDICARE | END | disposition home or self-care (01) | LOC: US 14:00 | PROVIDERS: ATTEND Nurse Practitioner Family | DX: I65.23 Occlusion and stenosis of bilateral carotid arteries (principal); F32.9 Major depressive disorder, single episode, unspecified; E78.5 Hyperlipidemia, unspecified; Z23 Encounter for immunization; I10 Essential (primary) hypertension ==

== ENCOUNTER → 2022-10-17 | Outpatient (CLI) | payer MEDICARE ==
[2022-10-17 14:41] LABS: TOTAL PROTEIN 7.2 gm/dL (6.0-8.0)
[2022-10-18 07:07] LABS: HBSAG Negative (Negative); HEP B CORE AB, IGM Negative (Negative); HEPATITIS C ANTIBODY Non Reactive (Non Reactive)
== END | disposition home or self-care (01) ==
LOC: LAB 14:01
PROVIDERS: ATTEND Nurse Practitioner Family
DX: I10 Essential (primary) hypertension (principal); E78.5 Hyperlipidemia, unspecified; F32.9 Major depressive disorder, single episode, unspecified; R79.89 Other specified abnormal findings of blood chemistry; R53.83 Other fatigue

== ENCOUNTER → 2023-12-11 | Outpatient (CLI) | payer MEDICARE | END | disposition home or self-care (01) | LOC: LAB 11:37 | PROVIDERS: ATTEND Nurse Practitioner Family | DX: E83.52 Hypercalcemia (principal) ==

== ENCOUNTER → 2023-12-18 | Outpatient (CLI) | payer MEDICARE | END | disposition home or self-care (01) | LOC: RAD 14:39 | PROVIDERS: ATTEND Nurse Practitioner Family | DX: M19.012 Primary osteoarthritis, left shoulder (principal); M47.812 Spondylosis without myelopathy or radiculopathy, cervical region; W19.XXXA Unspecified fall, initial encounter; Y93.89 Activity, other specified; Y92.89 Other specified places as the place of occurrence of the external cause; Y99.8 Other external cause status ==

== ENCOUNTER → 2024-03-11 | Outpatient (CLI) | payer MEDICARE ==
[2024-03-11 14:50] LABS: BASO # 0.1 10*3/uL (0.0-0.1); BASO % 0.7 % (0.0-1.0); EOS # 0.2 10*3/uL (0.0-0.4); EOS % 2.2 % (1.0-4.0); HEMATOCRIT 45.2 % (42.0-52.0); MEAN CELL VOLUME 105.9 fl (80.0-94.0); MEAN CORPUSCULAR HGB 34.4 pg (27.0-31.0); MEAN CORPUSCULAR HGB CONC 32.5 g/dl (33.0-37.0); MEAN PLATELET VOLUME 9.9 fl (9.6-12.3); MONO # 0.5 10*3/uL (0.1-1.0); MONO % 7.2 % (3.0-9.0); NEUT # 4.5 10*3/uL (2.3-7.9); NEUT % 62.4 % (47.0-73.0); PLATELET COUNT AUTOMATED 226 10*3/uL (130-400); RED BLOOD COUNT 4.27 10*6/uL (4.50-5.90); RED CELL DISTRI WIDTH 11.9 % (0-14.5); WHITE BLOOD COUNT 7.1 10*3/uL (4.8-10.8)
[2024-03-11 15:04] LABS: ALKALINE PHOSPHATASE 59 U/L (46-116); BUN 14 mg/dl (9-23); CHLORIDE 107 mmol/L (98-107); CHOLESTEROL 135 mg/dL (<200); LDL CHOLESTEROL 60 mg/dL (9-159); POTASSIUM 4.1 mmol/L (3.4-5.1); SGPT/ALT 33 U/L (5-49); TOTAL PROTEIN 8.3 gm/dL (6.0-8.0); TRIGLYCERIDES 115 mg/dl (<150)
== END | disposition home or self-care (01) ==
LOC: RHCWE 14:29 → LAB 14:29
PROVIDERS: ATTEND Nurse Practitioner Family
DX: Z23 Encounter for immunization (principal); M25.511 Pain in right shoulder; Z91.81 History of falling; Z79.899 Other long term (current) drug therapy

== ENCOUNTER 2024-05-17 09:09 | Emergency (ER) | payer MEDICARE ==
[2024-05-17 09:35] LABS: BASO % 0.3 % (0.0-1.0); EOS % 0.2 % (1.0-4.0); HEMATOCRIT 40.3 % (42.0-52.0); MEAN CELL VOLUME 102.3 fl (80.0-94.0); MEAN CORPUSCULAR HGB 34.8 pg (27.0-31.0); MEAN PLATELET VOLUME 9.3 fl (9.6-12.3); MONO # 0.7 10*3/uL (0.1-1.0); MONO % 6.8 % (3.0-9.0); NEUT # 8.6 10*3/uL (2.3-7.9); PLATELET COUNT AUTOMATED 161 10*3/uL (130-400); RED BLOOD COUNT 3.94 10*6/uL (4.50-5.90); RED CELL DISTRI WIDTH 11.9 % (0-14.5)
[2024-05-17 09:55] LABS: BUN 14 mg/dl (9-23); CHLORIDE 108 mmol/L (98-107); POTASSIUM 4.1 mmol/L (3.4-5.1)
[2024-05-17 11:32] LABS: BILIRUBIN Negative (Negative); BLOOD Negative (Negative); CLARITY Clear (Clear); COLOR Yellow (Yellow); GLUCOSE Negative (Negative); KETONE Trace (Negative); LEUKO ESTERASE Negative (Negative); NITRITE Negative (Negative); SPECIFIC GRAVITY 1.025 (1.001-1.030); UROBILINOGEN 0.2 E.U./dl (0.0-1.0)
[2024-05-17 11:58] LABS: EPITHELIAL CELLS 0-2; WBC 0-2 wbc/hpf (0-5)
[2024-05-17 11:59] LABS: BACTERIA 1+; CALCIUM OXALATE CRYSTALS 1+
[2024-05-18] MEDS ORDERED: ESCITALOPRAM OX20 MG PO (12:57)
[2024-05-18] MEDS ORDERED: METOPROLOL TART50 M1 PO (12:59)
[2024-05-18] MEDS ORDERED: VITAMIN B12500 MC2 PO (13:01)
[2024-05-18] MEDS ORDERED: VITAMIN D350 MCG PO (13:02)
== END 2024-05-17 13:06 | disposition home or self-care (01) ==
LOC: ED 09:09
PROVIDERS: Internal Medicine
DX: S09.8XXA Other specified injuries of head, initial encounter (principal); D53.9 Nutritional anemia, unspecified; K21.9 Gastro-esophageal reflux disease without esophagitis; J44.9 Chronic obstructive pulmonary disease, unspecified; I10 Essential (primary) hypertension; I25.2 Old myocardial infarction; E78.00 Pure hypercholesterolemia, unspecified; I48.91 Unspecified atrial fibrillation; Z88.8 Allergy status to other drugs, medicaments and biological substances; Z98.890 Other specified postprocedural states; Z87.891 Personal history of nicotine dependence; W06.XXXA Fall from bed, initial encounter; Y93.89 Activity, other specified; Y92.89 Other specified places as the place of occurrence of the external cause; Y99.8 Other external cause status